=== PATIENT | male | born 1970 | race Caucasian/White ===

== ENCOUNTER 2018-12-07 11:32 | Outpatient (CLI) | payer OTHER, SELFPAY ==
--- NOTE | 2018-12-07 11:16 | DI.RAD_ITS ---
SYMPTOMS/DIAGNOSIS: RT KNEE PAIN FOLLOWING INJURY AT WORK RIGHT KNEE: There is no evidence of a fracture or dislocation.
== END 2018-12-07 11:52 ==
PROVIDERS: PCP Nurse Practitioner Family; Visit Provider Physician Assistant
DX: M25.561 Pain in right knee
CPT/HCPCS: 73562

== ENCOUNTER 2018-12-18 07:31 | Outpatient (CLI) | payer OTHER, SELFPAY ==
--- NOTE | 2018-12-18 08:31 | DI.MRI_ITS ---
EXAM: MR LOWER JOINT RT WO CLINICAL HISTORY: right medial knee pain following injury at work, M25.569. TECHNIQUE: Multiplanar multisequence MRI was performed. COMPARISON: XR knee RT 3V AP,lat,sulma from 12/07/2018 FINDINGS: There is a 14 millimeter in greatest diameter rounded lesion of distal femoral metaphysis which lies centrally in the marrow cavity. This is predominantly well circumscribed with slight irregularities of portions of the superior border and shows high signal with some internal septations on T2 fat sat imaging. Shows low to intermediate signal on PD imaging. Findings are consistent with enchondroma. No prior MR or CT available for comparison. Lesion is not well visualized on plain films obtained r ecently. There is a small knee joint effusion. Extensor mechanism appears intact. Minimal signal changes not ed in medial femoral condylar articular cartilage. Lateral meniscus appears intact. Medial meniscus contains a nondisplaced mid body to posterior horn inferior surfacing tear. No cruciate ligament te ar seen. No significant collateral ligament injury seen. IMPRESSION: Nondisplaced medial meniscal tear involving the body and posterior horn. Probable enchondroma of the distal femoral metaphysis as described above. Other etiologies including neoplastic disease not entirely excluded and additional evaluation with contrast-enhanced MRI or SPE CT bone scan is recommended.
== END 2018-12-18 07:51 ==
PROVIDERS: PCP Nurse Practitioner Family; Visit Provider Physician Assistant
DX: M25.561 Pain in right knee (principal); S83.241A Other tear of medial meniscus, current injury, right knee, initial encounter; D16.21 Benign neoplasm of long bones of right lower limb
CPT/HCPCS: 73721

== ENCOUNTER 2019-01-05 07:50 | Day surgery (SDC) | payer OTHER, SELFPAY ==
[2019-01-05] VITALS (9 sets, daily range): BP systolic 108–139; BP diastolic 51–90; PULSE 57–74; RESP 10–20; TEMP 36–36.7; O2SAT 93–97
--- NOTE | 2019-01-05 08:25 | W.PM.DSUDISC ---
Discharge Plan Disposition Patient Disposition: HOME Condition: Good Discharge Details Reason For Visit: Right knee medial meniscus tear Attending Provider: Mor Perez Primary Care Provider: Carolina Saleh Home Meds and New Rx's Prescriptions: New hydrocodone-acetaminophen 5-325 mg tablet 1 tab PO Q6H PRN (Reason: severe pain) Qty: 8 RF: 0 acetaminophen 500 mg tablet 500 mg PO Q6H PRN (Reason: pain) Qty: 60 RF: 2 ibuprofen 600 mg tablet 600 mg PO TID PRN (Reason: pain) Qty: 60 RF: 2 Discharge Instructions Stand Alone Forms: Ana Knee Arthroscopy Referrals: Mor Perez MD [ [facility] STAFF PHYSICIAN] - Equipment/Supplies: Partial Weight Bearing Crutches Activity:: Elevate Remove Dressings/Wound Care:: 72 hours Shower/Bathe:: 72 hours Diet:: As Tolerated Discharge Orders Discharge Orders: Discharge Order (Routine); Ordered 01/05/19 Ordered By: Felicita Kemp DS: Diagnosis Discharge Diagnosis (1) Acute medial meniscus tear of right knee: Status: Acute
[2019-01-05] MEDS: Lactated Ringers 1,000 ML 80 ML IV (08:41)
[2019-01-05] MEDS: ceFAZolin 2 GM/50 ML BAG IVPB (10:10)
[2019-01-05] MEDS: Bupivacaine 0.5% Pres-Free 30 ML VIAL (10:52)
--- NOTE | 2019-01-06 06:08 | W.PM.OP ---
Date of service: 01/05/19 Time of Service: 12:09 Operative Note Operative Note DATE OF PROCEDURE: 01/05/19 PRE-OP DIAGNOSIS: Right medial meniscal tear POST-OP DIAGNOSIS: other (Right complex medial meniscal tear, right lateral meniscus tear) PROCEDURE: Right knee arthroscopic partial medial meniscectomy with partial lateral meniscectomy SURGEON: Mor Perez ANESTHESIA: GETA ESTIMATED BLOOD LOSS: 0 PATHOLOGY: none sent COMPLICATIONS: None Patient was transported to: PACU Patient's condition: stable Indications: I have seen Ori in clinic for symptoms of a meniscus tear. This was confirmed based on MRI and exam findings. Nonoperative measures were exhausted but disability and pain persisted. I discussed knee arthroscopy with meniscal intervention with the patient. I reviewed the risks of the procedure to include, but not limited to, bleeding, infection, pain, stiffness, damage to nerves or vessels, recurrence, blood clot. Despite these risks, the patient elected to proceed. Findings: A diagnostic arthroscopy was performed with the following findings: Suprapatellar Pouch: No significant inflammation, no loose bodies Medial Compartment: Complex medial meniscal tear, intact meniscal root, the central, distal portion of the femur had a cartilage flap with focal grade II chondromalacia, no loose bodies Notch: ACL and PCL were intact Lateral Compartment: Small fraying seen at the root but did not destabilize the root, no significant chondromalacia or signs of arthritis, no loose bodies Patellofemoral Compartment: No significant chondromalacia, no apparent patellar maltracking Procedure Description: Ori was greeted in the preoperative holding area where the correct side was identified and marked. The consent was reviewed with the patient and signed. The history and physical was updated. All questions were answered. Ori was taken back to the operating room. The patient was placed into the supine position on the operating room table. A nonsterile tourniquet was placed high onto the leg but not used. All bony prominences were well padded. Prophylactic antibiotics in the form of cefazolin were administered. The right leg was then prepped with Chloraprep and draped in a standard fashion with stockinette and extremity drape. A timeout to confirm correct identity, side and site, procedure, allergies, anesthesia, and medical concerns was performed. The leg was placed into a pneumatic leg al, [id number]. A standard lateral portal was made at the lateral border of the patella tendon in line with the inferior pole of the patella, soft spot. The skin and deep tissue was incised sharply and the blunt trochar was inserted atraumatically. A diagnostic arthroscopy was performed and the findings are listed above. The suprapatellar pouch had no significant inflammatory change. The patellofemoral articulation showed no articular damage as well as good tracking. The lateral gutter had no loose bodies and the medial gutter had no loose bodies. The knee was brought into some valgus stress in extension to open the medial compartment. A medial portal was made, localized by a spinal needle. The portal was created with an #11 blade through skin and capsule under direct visualization avoiding any meniscal injury. A probe was then inserted into the medial compartment. The medial compartment was fully inspected. The chondral surface of the tibia showed no significant chondromalacia and the surface of the femur showed a large chondral flap with underlying grade II chondromalacia. The cartilage was quite soft in this area and may actually represent grade 3 in certain areas. The medial meniscus had a complex meniscal tear with both radial and horizontal components involving the posterior body and horn. There was some extension towards the root but it did not destabilize the root. There is no clean edges to consider repair. After evaluation, the meniscus was debrided down to a stable base using a series of biters and arthroscopic jose g. It was probed afterwards to confirm that the tear had been removed and the meniscus was stable. Cartilage surfaces were debrided of any flaps, leaving any intact fibers. The notch was then inspected which showed an intact ACL and an intact PCL. The leg was then brought into a figure of 4 position. The lateral compartment was fully inspected with the arthroscope and a probe. The chondral surface of the lateral femur showed no significant chondromalacia. The chondral surface of the lateral tibia showed no significant chondromalacia. The lateral meniscus had some fraying at the meniscal root involving no more than 20% of the meniscal tissue. After evaluation, the meniscus was debrided down to a stable base using a series of biters and arthroscopic jose g. It was probed afterwards to confirm that the tear had been removed and the meniscus was stable. The arthroscope was brought back into the suprapatellar pouch and the leg was in full extension. The knee was thoroughly irrigated with the arthroscopic fluid on high flow and pressure. Inflow was stopped and excess fluid was removed. The wounds were closed with 4-0 Nylon. They were dressed with Xeroform, 4x4 gauze, ABD pad, Kerlix and an RADHA wrap. A cryo-cuff was applied. The patient tolerated the procedure well and was returned to the PACU in a stable condition suffering no known complication. Ori will be weightbearing as tolerated. He will have crutches for support. He is to work on range of motion as soon as pain allows.
== END 2019-01-05 13:00 | disposition home or self-care (01) ==
PROVIDERS: PCP Nurse Practitioner Family; Visit Provider Student in an Organized Health Care Education/Training Program
PROC: (CPT 29870; principal; 2019-01-05 09:00)
DX: S83.231A Complex tear of medial meniscus, current injury, right knee, initial encounter (principal); S83.281A Other tear of lateral meniscus, current injury, right knee, initial encounter; M94.261 Chondromalacia, right knee; X58.XXXA Exposure to other specified factors, initial encounter; Y99.0 Civilian activity done for income or pay
CPT/HCPCS: 29880; E0114; J0690; J1100; J1885; J2250; J2405

== ENCOUNTER 2019-11-11 16:44 | Outpatient (REF) | payer OTHER, SELFPAY ==
[2019-11-11 21:20] LABS: ALT 20 U/L (16-63); AST 13 U/L (15-37); Calculated LDL 107 mg/dL (<100); Cholesterol 173 mg/dL (<200); HDL Cholesterol 39 mg/dL (40-60); Triglyceride 136 mg/dL (<150)
[2019-11-15 08:39] LABS: PSA, Screening 0.4 ng/mL (0.0-3.5)
== END 2019-11-11 17:04 ==
LOC: NCHCN 16:44
PROVIDERS: PCP Nurse Practitioner Family; Visit Provider Nurse Practitioner Family
DX: Z00.00 Encounter for general adult medical examination without abnormal findings (principal); Z13.220 Encounter for screening for lipoid disorders; Z12.5 Encounter for screening for malignant neoplasm of prostate
CPT/HCPCS: 80061; 84153; 84450; 84460

== ENCOUNTER 2020-01-20 09:08 | Day surgery (SDC) | payer OTHER, SELFPAY ==
[2020-01-20 09:14] VITALS: BP 141/91; PULSE 71; RESP 18; TEMP 36.7; O2SAT 96
[2020-01-20] MEDS: Lactated Ringers 1,000 ML 80 ML IV (09:30)
--- NOTE | 2020-01-20 09:52 | W.COLOREPORT ---
Date of service: 01/20/20 Time of Service: 09:52 Colonoscopy Report Date of procedure: 01/20/20 Pre-op diagnosis general: screen Post-op diagnosis procedure note: same Surgeon: Felicita Stallings Anesthesia proc note operative: GETA Disposition: no change Prep: Miralax/Dulcolax Retraction Time: 10 mins Procedure Description: After informed consent was obtained the patient was taken to the procedure room and placed in a left decubitous position. Monitors were applied and a time out was done. The patients name, date of , procedure, allergies to medications and metal in their body was reviewed. The patient was then sedated. Once sedated and comfortable a rectal exam was done. External exam was normal. Internal exam revealed a normal sphincter tone and no palpable masses. The scope was then introduced and retrofelexed. No internal hemorrhoids were identified. The scope was then advanced to the cecum w/out difficulty. The TI and appendiceal orifice were identified. The prep was good. The scope was then slowly retracted over 10 minutes back into the rectum. No polyps, AVMs, diverticula or strictures apparent. The mucosa is pink. The scope was removed and the patient was woken up and taken back to Same day surgery in stable condition. The patient tolerated the procedure well and there were no immediate complications. Follow up: The patient should follow up in 10 years unless they develop changes in bowel habits or other new gastrointestinal complaints.
--- NOTE | 2020-01-20 10:20 | W.PM.DSUDISC ---
Discharge Plan Disposition Patient Disposition: HOME Condition: Good Discharge Details Reason For Visit: colon can screen Attending Provider: Felicita Stallings Primary Care Provider: Carolina Saleh Home Meds and New Rx's Prescriptions: No Action Elderberry 200 mg Capsule 200 mg PO DAILY RF: 0 acetaminophen 500 mg tablet 500 mg PO Q6H PRN (Reason: pain) Qty: 60 RF: 2 ibuprofen 600 mg tablet 600 mg PO TID PRN (Reason: pain) Qty: 60 RF: 2 Discharge Instructions Additional Instructions: Findings:normal Follow up:repeat in 10 yrs time Please call if you develop: fevers >101.5 Nausea or Vomiting Abdominal pain that is not transient DAY SURGERY UNIT POST COLONOSCOPY INSTRUCTIONS 1. Because there will be medication in your system for the next 24 hours, you may feel a little sleepy. Your coordination will be affected. Therefore: a. Do not drive or operate dangerous equipment for 24 hours. b. Do not drink alcohol beverages for 24 hours (not even beer). c. Plan to go home and rest for the day. 2. Generally there are no restrictions on your activity after a day or so has gone by, but you may feel a bit fatigued for a few days. 3 After you arrive home you may have a light meal and return to a normal diet as you can tolerate it without feeling sick to your stomach. 4. After surgery, you may feel pain or discomfort. This should be only transient, but if it persists please contact your doctor. 5. If there are any questions regarding the findings of your procedure, please feel free to contact your doctor. 6. If you are unable to contact your doctor with a problem, contact the hospital at [phone]. 7. Continue all your regular medications unless directed otherwise. I understand the above instructions and have no questions. Signature of Patient or Responsible Adult Escort Date/Time Name of Responsible Adult Escort Signature of Nurse Date/Time Activity:: No lifting over 20 pounds or strenuous activity x24 hours Diet:: Small light meals x24 hours Discharge Orders Discharge Orders: Discharge Order (Routine); Ordered 01/20/20 Ordered By: Felicita Stallings DS: Diagnosis Discharge Diagnosis (1) Colon cancer screening: Status: Acute
[2020-01-20 10:49] VITALS: BP 123/68; PULSE 58; RESP 16; TEMP 36.4; O2SAT 96
== END 2020-01-20 11:15 | disposition home or self-care (01) ==
PROVIDERS: PCP Nurse Practitioner Family; Visit Provider Surgery
PROC: 0DJD8ZZ Inspection of Lower Intestinal Tract, Via Natural or Artificial Opening Endoscopic (ICD-10-PCS; CPT 45378; principal; 2020-01-20 10:15)
DX: Z12.11 Encounter for screening for malignant neoplasm of colon (principal)
CPT/HCPCS: 45378; J2001

== ENCOUNTER 2021-04-24 22:35 | Outpatient (REF) | payer OTHER, SELFPAY ==
[2021-04-24 20:29] LABS: HCT 44.5 % (40.0-50.0); MCH 29.6 pg (27.0-33.0); MCHC 33.7 % (32.0-36.0); MCV 87.9 fL (80-95); MPV 10.6 fL (8.0-11.0); Platelet Count 353 10^3/uL (130-400); RBC 5.06 10^6/uL (4.36-5.78); RDW 12.3 % (11.8-14.1); RDW-SD 39.7 fL; WBC 7.52 10^3/uL (4.4-10.8)
[2021-04-24 20:31] LABS: Bilirubin Negative (Negative); Blood Trace-intact (Negative); Glucose Negative (Negative); Ketones Negative (Negative); Leukocyte Esterase Negative (Negative); Nitrite Negative (Negative); Specific Gravity >= 1.030 (1.005-1.025); Urobilinogen 0.2 EU/dL (Up TO 0.2)
[2021-04-24 20:35] LABS: Clarity Sl Cloudy (Clear)
[2021-04-24 20:39] LABS: Bacteria Few HPF (Negative); C & S Indicated? No; Casts Negative LPF (Negative); Crystals Moderate Amorphous HPF (Negative); Epithelial Cells Negative HPF (Negative); Mucus Negative (Negative); WBC 0-2 HPF (0-5)
[2021-04-24 20:59] LABS: Anion Gap 7.8 mmol/L (3-11); BUN 19 mg/dL (7-18); CO2 30.2 mmol/L (21.0-32.0); CREATININE 0.9 mg/dL (0.70-1.30); Calcium 9.4 mg/dL (8.5-10.1); Chloride 104 mmol/L (98-107); Glucose 95 mg/dL (74-106); Potassium 4.1 mmol/L (3.5-5.1); Sodium 142 mmol/L (136-145)
[2021-04-25 16:55] LABS: PSA, Screening 0.4 ng/mL (0.0-3.5)
[2021-04-26 10:18] LABS: Hepatitis C Ab w Rflx HCV PCR Negative (Negative)
[2021-04-26 10:41] LABS: HIV-1/2 Ag & Ab Screen Negative (Negative)
== END 2021-04-24 22:36 | disposition home or self-care (01) ==
LOC: NCHCN 22:35
PROVIDERS: PCP Nurse Practitioner Family; Visit Provider Nurse Practitioner Family
DX: Z00.00 Encounter for general adult medical examination without abnormal findings (principal); Z12.5 Encounter for screening for malignant neoplasm of prostate; Z11.4 Encounter for screening for human immunodeficiency virus [HIV]; Z11.59 Encounter for screening for other viral diseases
CPT/HCPCS: 80048; 84153; 85027; 86803; 87389; 81003; 81015

== ENCOUNTER 2023-04-04 16:42 | Outpatient (REF) | payer SELFPAY ==
[2023-04-04 21:36] LABS: Abs Immature Grans 0.01 10^3/uL (0.0-0.06); Absolute Basophil Count 0.06 10^3/uL (0.0-0.2); Absolute Eosinophil Count 0.11 10^3/uL (0.0-0.7); Absolute Monocyte Count 0.77 10^3/uL (0.1-0.8); Absolute Neutrophil Count 3.73 10^3/uL (1.2-6.7); Basophils % 0.9; Eosinophils % 1.6; HCT 44.4 % (40.0-50.0); HGB 15.4 g/dL (13.5-17.5); Immature Grans % 0.1; Lymphocytes % 29.9; MCHC 34.7 % (32.0-36.0); MCV 87 fL (80-95); MPV 10.8 fL (8.0-11.0); Monocytes % 11.5; Platelet Count 309 10^3/uL (130-400); RBC 5.13 10^6/uL (4.36-5.78); RDW 12.4 % (11.8-14.1); RDW-SD 39.3 fL; WBC 6.68 10^3/uL (4.4-10.8)
[2023-04-04 21:50] LABS: ALT 28 U/L (16-63); AST 22 U/L (15-37); Albumin 4.5 g/dL (3.4-5.0); Alkaline Phosphatase 66 U/L (46-116); Anion Gap 7.5 mmol/L (3-11); BUN 18 mg/dL (7-18); Bilirubin, Total 0.8 mg/dL (0.2-1.0); CO2 27.5 mmol/L (21.0-32.0); CREATININE 0.9 mg/dL (0.70-1.30); Calcium 9.5 mg/dL (8.5-10.1); Chloride 104 mmol/L (98-107); Estimated GFR 102.12 (mL/min/1.73m2); Glucose 81 mg/dL (74-106); Potassium 4.5 mmol/L (3.5-5.1); Sodium 139 mmol/L (136-145); Total Protein 7.7 g/dL (6.4-8.2)
[2023-04-07 09:41] LABS: Hepatitis B Surface Ag Negative (Negative)
[2023-04-07 10:09] LABS: HBs Antibody, Quant 26.9 mIU/mL (See Note); Hepatitis B Surface Ab Positive (See Note)
[2023-04-07 10:18] LABS: Hepatitis C Ab w Rflx HCV PCR Negative (Negative)
[2023-04-07 10:58] LABS: HIV-1/2 Ag & Ab Screen Negative (Negative)
[2023-04-07 11:07] LABS: Hep B Core Antibody Negative (Negative)
== END 2023-04-04 16:43 | disposition home or self-care (01) ==
LOC: LBN 16:42
PROVIDERS: PCP Nurse Practitioner Family; Visit Provider Physician Assistant Medical
DX: T14.8XXA Other injury of unspecified body region, initial encounter (principal)
CPT/HCPCS: 80053; 86704; 86706; 86803; 87340; 87389; 85025

== ENCOUNTER 2023-05-21 12:49 | Outpatient (REF) | payer SELFPAY ==
[2023-05-21 23:00] LABS: Hepatitis C Ab w Rflx HCV PCR Negative (Negative)
[2023-05-21 23:02] LABS: HIV-1/2 Ag & Ab Screen Negative (Negative)
== END 2023-05-21 12:50 | disposition home or self-care (01) ==
LOC: NCHCN 12:49
PROVIDERS: PCP Nurse Practitioner Family; Visit Provider Physician Assistant Medical
DX: Z11.4 Encounter for screening for human immunodeficiency virus [HIV] (principal); Z11.59 Encounter for screening for other viral diseases; W46.0XXA Contact with hypodermic needle, initial encounter
CPT/HCPCS: 86803; 87389